=== PATIENT | male | born 1990 | race Caucasian/White ===

== ENCOUNTER 2016-07-27 19:58 | Emergency (ER) ==
[2016-07-27] MEDS ORDERED: MOTRIN PO ONE (20:17)
--- NOTE | 2016-07-27 20:50 | PROVIDER DOCUMENTATION ---
HPI-General Adult - General Source: patient - History of Present Illness -Gen Adult Nature of Presenting Problems: 26 year old M presents to the ED with a cc of body aches, nausea, vomiting, and headache with an onset of this morning. Location of Pain/Injury: reports: generalized Pain Radiation: reports: no radiation Quality of Pain: reports: aching Severity: reports: mild Onset/Duration: reports: this morning Timing: reports: still present Associated Symptoms: reports: fever/chills, headaches, muscle aches, nausea, vomiting Similar Symptoms Previously?: No Recently seen or treated by another doctor?: No <Latosha Goodson - Last Filed: 07/27/16 21:04> <Gasper Castellanos - Last Filed: 07/27/16 21:38> - General Chief Complaint: Flu Symptoms Stated Complaint: FLU LIKE SX Time Seen by Provider: 07/27/16 20:22 Allergies/Adverse Reactions: Patient Allergies Allergy/AdvReac Type Severity Reaction Status Date / Time No Known Allergies Allergy Verified 04/17/16 10:52 Home Medications: Home Medication List Medication Instructions Recorded Confirmed Last Taken Type Amoxicillin [Amoxil] 500 mg PO BID #14 capsule 07/27/16 Unknown Rx Amphet Asp/Amphet/D-Amphet 30 mg PO DAILY 07/27/16 07/27/16 Unknown History [Adderall 30 mg Tablet] Diphenhyramine/Al&mg Oh/Lido [Mbx 15 ml MT Q4-6H PRN PRN #1 bottle 07/27/16 Unknown Rx Solution] Prednisone 20 mg PO DAILY #6 tablet 07/27/16 Unknown Rx Review of Systems - Adult - REVIEW OF SYSTEMS - ADULT Constitutional: reports: fever. denies: chills Eyes: reports: no symptoms reported Ears, Nose, Mouth & Throat: reports: no symptoms reported Cardiovascular: denies: chest pain, palpitations Respiratory: denies: cough, shortness of breath Gastrointestinal: reports: nausea, vomiting Genitourinary: reports: no symptoms reported Musculoskeletal: reports: muscle aches. denies: muscle weakness Integumentary: reports: no symptoms reported Neurological: reports: headache/migraines. denies: dizziness/vertigo Psychiatric: reports: no symptoms reported Endocrine: reports: no symptoms reported Hematologic/Lymphatic: reports: no symptoms reported Allergic/Immunologic: reports: no symptoms reported All Other Systems: Reviewed and Negative <Latosha Goodson - Last Filed: 07/27/16 21:04> Past History - Adult - PAST MEDICAL HISTORY-ADULT Review of Records: reports: Nursing Assessment Review, Medications Reviewed Major Childhood Illnesses: reports: denies history Cardiovascular: reports: denies history Respiratory: reports: denies history Gastrointestinal: reports: Crohn's Obstetrical/Gynecological: reports: denies history Genitourinary: reports: denies history Musculoskeletal: reports: denies history Neurological: reports: denies history Psychiatric: reports: schizophrenia Endocrine/Immune: reports: denies history Other Conditions: reports: denies history - PRIOR SURGERIES/PROCEDURES Surgical/Procedure History: reports: reviewed, not pertinent - PRIOR HOSPITALIZATIONS Prior Hospitalizations: reports: other - IMMUNIZATION STATUS Childhood Immunizations: See Nurse Assessment Flu Vaccine: See Nurse Assessment - FAMILY HISTORY Family History: reviewed, not pertinent - SOCIAL HISTORY Smoking: cigarettes, greater than 1 pack/day Provider spent 3-5 mins advising pt. on dangers of tobacco.: Discussed manners to quit use, and f/u contacts for add'l counseling. Substance Use: none/never Alcohol Use Frequency: occasionally <Latosha Goodson - Last Filed: 07/27/16 21:04> Physical Exam-General - PHYSICAL EXAM-ADULT Initial Vital Signs Reviewed: Yes - CONSTITUTIONAL General Appearance: appears well, alert, no apparent distress - HEAD, EARS, NOSE, MOUTH & THROAT HENMT: pharyngeal erythema, tonsillar exudate (with tonsillar swelling) - RESPIRATORY Respiratory: chest non-tender, lungs clear, normal breath sounds - CARDIOVASCULAR Cardiovascular: normal peripheral pulses, regular rate, rhythm, no edema - GASTROINTESTINAL (ABDOMEN) Abdominal Exam: non tender, soft - SKIN Integumentary: normal color, normal turgor, warm/dry - PSYCHIATRIC Psych/Mental Status: normal mood/affect, normal thought content, normal thought process, oriented x 3 <Latosha Goodson - Last Filed: 07/27/16 21:04> Progress - PLAN OF CARE/RESULTS Progress/Plan/Lab Results: Laboratory Tests 07/27/16 07/27/16 20:20 20:20 Influenza A (Rapid) NEGATIVE Influenza B (Rapid) NEGATIVE Group A Strep Rapid POSITIVE A Orders Category Date Time Status DIRECT STREP PL Stat Lab 07/27/16 20:[address] Stat Lab 07/27/16 20:20 Completed Ibuprofen [Motrin] Med 07/27/16 20:17 Discontinued 800 mg PO NOW ONE Vital Signs Temp Pulse Resp BP Pulse Ox 07/27/16 20:14 102.1 F H 114 H 20 123/78 99 No Known Allergies Allergy (Verified 04/17/16 10:52) Amphet Asp/Amphet/D-Amphet [Adderall 30 mg Tablet] 30 mg PO DAILY 07/27/16 Laboratory 07/27/16 07/27/16 20:20 20:20 Influenza A (Rapid) NEGATIVE Influenza B (Rapid) NEGATIVE Group A Strep Rapid POSITIVE A Orders Category Date Time Status DIRECT STREP PL Stat Lab 07/27/16 20:[address] Stat Lab 07/27/16 20:20 Completed Dexamethasone [Decadron] Med 07/27/16 21:36 Once 10 mg IM NOW ONE Ibuprofen [Motrin] Med 07/27/16 20:17 Discontinued 800 mg PO NOW ONE Penicillin G Benzathine [Bicillin l-A] Med 07/27/16 21:36 Once 1,200,000 unit IM NOW ONE <Gasper Castellanos - Last Filed: 07/27/16 21:38> Departure <Latosha Goodson - Last Filed: 07/27/16 21:04> - Departure Time of Disposition Order: 21:37 Certified Medical Emergency: Urgent <Gasper Castellanos - Last Filed: 07/27/16 21:38> - Departure DIAGNOSIS: Strep tonsillitis Disposition: HOME 01 Condition: Good Additional Instructions: Take medication as prescribed. Follow up with your primary care provider. Rest and stay well hydrated. ED Follow Up Instructions: You have been treated by a care provider in the Emergency Department. These instructions are being provided to you so you can have an understanding of how to care for yourself upon discharge. Upon discharge from the Emergency Department, you are responsible for making arrangements for follow-up care by a physician of your choice. Take all prescribed medications as directed. Return to the Emergency Department immediately for any new or worsening symptoms. You may call the Physician Referral phone number at [phone] to obtain a list of Physicians who are taking new patients. Prescriptions: Amoxicillin [Amoxil] 500 mg PO BID #14 capsule Diphenhyramine/Al&mg Oh/Lido [Mbx Solution] 15 ml MT Q4-6H PRN PRN #1 bottle PRN Reason: Sore throat Prednisone 20 mg PO DAILY #6 tablet Attestation - Scribe Verification/Attestation Scribe:: Latosha Goodson Acting as Scribe for:: Gasper Castellanos Scribe documention review:: This chart was documented by a scribe and accurately reflects the service the provider performed and the decisions made by the provider. <Latosha Goodson - Last Filed: 07/27/16 21:04> - Physician/ [facility] Attestation Patient care was provided by Advanced Practice Provider:: Yes Advanced Practice Provider:: Gasper Castellanos Advanced Practice Provider documentation review:: The Mid-level provider documentation, treatment plan and medical decision making was reviewed by the physician who agrees with all treatment and medical decision making by the MLP. <Gasper Castellanos - Last Filed: 07/27/16 21:38> Physician Attestation - Physician Attestation I, the provider, attest to the following statement:: Gasper Castellanos Physician documentation Attestation:: This documentation recorded by the scribe accurately reflects the service I personally performed and the decisions made by me. <Latosha Goodson - Last Filed: 07/27/16 21:04>
[2016-07-27] MEDS ORDERED: DECADRON IM ONE (21:36)
[2016-07-27] MEDS ORDERED: BICILLIN L-A IM ONE (21:36)
[2016-07-27 21:54] VITALS: BP 117/66
== END 2016-07-27 22:05 | disposition home or self-care (01) ==
LOC: P.ED 19:58
DX: J03.00 Acute streptococcal tonsillitis, unspecified (principal); R50.9 Fever, unspecified; R11.2 Nausea with vomiting, unspecified; M79.1 Myalgia; R51 Headache; K50.90 Crohn's disease, unspecified, without complications; F20.9 Schizophrenia, unspecified; F17.210 Nicotine dependence, cigarettes, uncomplicated; Z71.6 Tobacco abuse counseling; Z79.899 Other long term (current) drug therapy
CPT/HCPCS: 87430; 87804; J0561